=== PATIENT | female | born 1975 | race Caucasian/White ===

== ENCOUNTER → 2020-09-26 | Outpatient (CLI) | payer OTHER ==
--- NOTE | 2020-09-26 14:45 | RADIOLOGY REPORT (SQ) ---
EXAM DESCRIPTION: LUMBAR SPINE COMPLETE IMAGES COMPLETED DATE/TIME: 09/26/2020 2:32 pm REASON FOR STUDY: CHRONIC NECK PAIN;CHRONIC BACK PAIN;BRIAN SHOULDER PAIN M54.9 DORSALGIA, UNSPECIFIE D M25.511 PAIN IN RIGHT SHOULDER M25.512 PAIN IN LEFT SHOULDER COMPARISON: None. NUMBER OF VIEWS: Five views including obliques. TECHNIQUE: AP, lateral, oblique, and sacral radiographic images acquired of the lumbar spine. LIMITATIONS: None. FINDINGS: MINERALIZATION: Normal. SEGMENTATION: Normal. No transitional anatomy. ALIGNMENT: Normal. VERTEBRAE: Maintained height. No fracture or worrisome bone lesion. DISCS: Preserved height. No significant osteophytes or end plate irregularity. POSTERIOR ELEMENTS: Pedicles and facets are intact. No pars defect or posterior arch defects. HARDWARE: None in the spine. PARASPINAL SOFT TISSUES: Normal. PELVIS: Intact as visualized. No fractures or worrisome bone lesions. SI joints intact. OTHER: No other significant finding. IMPRESSION: NORMAL 5 VIEW LUMBAR SPINE. TECHNICAL DOCUMENTATION: JOB ID: [id number] 2010 [employer]- All Rights Reserved Reading location - IP/workstation name: [email or web address]
--- NOTE | 2020-09-26 14:56 | RADIOLOGY REPORT (SQ) ---
EXAM DESCRIPTION: C SP 3 VWS OR LESS IMAGES COMPLETED DATE/TIME: 09/26/2020 2:31 pm REASON FOR STUDY: CHRONIC NECK PAIN;CHRONIC BACK PAIN;BRIAN SHOULDER PAIN M54.9 DORSALGIA, UNSPECIFIE D M25.511 PAIN IN RIGHT SHOULDER M25.512 PAIN IN LEFT SHOULDER COMPARISON: None. NUMBER OF VIEWS: Three views. TECHNIQUE: AP, lateral and odontoid radiographic images acquired of the cervical spine. LIMITATIONS: None. FINDINGS: MINERALIZATION: Normal. ALIGNMENT: Reversal of the normal cervical doses. VERTEBRAE: Vertebral bodies of normal height. DISCS: No significant disc space narrowing. No large osteophytes. HARDWARE: None in the spine. SOFT TISSUES: No masses or calcifications. Lung apices clear. OTHER: No other significant finding. IMPRESSION: Reversal of the normal cervical doses. No other significant findings. TECHNICAL DOCUMENTATION: JOB ID: [id number] 2010 [employer]- All Rights Reserved Reading location - IP/workstation name: [email or web address]
--- NOTE | 2020-09-26 14:57 | RADIOLOGY REPORT (SQ) ---
EXAM DESCRIPTION: SHOULDER BILAT 2 OR MORE VIEWS IMAGES COMPLETED DATE/TIME: 09/26/2020 2:32 pm REASON FOR STUDY: CHRONIC NECK PAIN;CHRONIC BACK PAIN;BRIAN SHOULDER PAIN M54.9 DORSALGIA, UNSPECIFIE D M25.511 PAIN IN RIGHT SHOULDER M25.512 PAIN IN LEFT SHOULDER COMPARISON: None. NUMBER OF VIEWS: Three views. TECHNIQUE: Internal dictation, external rotation and Y-views of the right shoulder were submitted al michael with internal and external views of left shoulder. LIMITATIONS: None. FINDINGS: MINERALIZATION: Normal. BONES: No acute fracture. No worrisome bone lesions. No significant osteophytes. GLENOHUMERAL JOINT: No significant findings. ACROMIOCLAVICULAR JOINT: No large osteophytes. SOFT TISSUES: No calcifications. VISUALIZED RIBS, SPINE, AND LUNG: No other significant finding. OTHER: No other significant finding. IMPRESSION: NEGATIVE STUDY OF THE RIGHT AND LEFT SHOULDERS. NO EXPLANATION FOR PAIN. TECHNICAL DOCUMENTATION: JOB ID: [id number] 2010 [employer]- All Rights Reserved Reading location - IP/workstation name: [email or web address]
== END ==
LOC: OD 14:09
PROVIDERS: ATTEND Nurse Practitioner Family
DX: M54.2 Cervicalgia (principal); M25.511 Pain in right shoulder; M25.512 Pain in left shoulder
CPT/HCPCS: 72040; 72110

== ENCOUNTER → 2020-10-05 | Outpatient (CLI) | payer OTHER ==
--- NOTE | 2020-10-05 08:44 | WOMENS IMAGING REPORT ---
EXAM DESCRIPTION: RETROPERITONEAL U/S IMAGES COMPLETED DATE/TIME: 10/05/2020 8:34 am REASON FOR STUDY: Z85.528 PERSONAL HISTORY OF OTHER MALIGNANT NEOPLASM OF KIDNEY Z85.528 PERSONAL H ISTORY OF OTHER MALIGNANT NEOPLASM OF KIDN COMPARISON: None. TECHNIQUE: Dynamic and static grayscale images acquired of the kidneys and bladder and recorded on P ACS. Additional selected color Doppler and spectral images recorded. LIMITATIONS: None. FINDINGS: RIGHT KIDNEY: Normal size. Normal echogenicity. Complex cystic mass measuring 3.5 x 2 .1 x 3.4 cm. Recommend correlation with old films or CT with and without contrast for further charac terization. No hydronephrosis. No calcifications. LEFT KIDNEY: Normal size. Normal echogenicity. No solid or suspicious masses. No hydronephrosi s. No calcifications. BLADDER: No masses. OTHER FINDINGS: No other significant finding. IMPRESSION: Complex 3.5 x 2.1 x 3.4 cm mass off the upper pole the right kidney. Recommend correlat ion with old films. If unavailable CT of the abdomen without and with contrast is recommended for fu rther characterization. TECHNICAL DOCUMENTATION: JOB ID: [id number] 2010 [employer]- All Rights Reserved Reading location - IP/workstation name: [email or web address]
== END ==
LOC: WI 07:58
PROVIDERS: ATTEND Nurse Practitioner Family
DX: Z08 Encounter for follow-up examination after completed treatment for malignant neoplasm (principal); Z85.528 Personal history of other malignant neoplasm of kidney; N28.89 Other specified disorders of kidney and ureter
CPT/HCPCS: 76770

== ENCOUNTER → 2020-10-24 | Outpatient (CLI) | payer OTHER ==
--- NOTE | 2020-10-24 13:30 | RADIOLOGY REPORT (SQ) ---
EXAM DESCRIPTION: CT ABD/PELVIS COMBO IMAGES COMPLETED DATE/TIME: 10/24/2020 9:22 am REASON FOR STUDY: (R93.429)ABNORMAL RADIOLOGIC FINDINGS ON DX IMAGING OF UNSP KIDNEY R93.429 ABNORM AL RADIOLOGIC FINDINGS ON DX IMAGING OF UNSP K N28.89 OTHER SPECIFIED DISORDERS OF KIDNEY AND URETER COMPARISON: 10/05/2020 ultrasound TECHNIQUE: CT scan of the abdomen and pelvis performed with and without intravenous contrast, and wi thout oral contrast. Contrasted imaging performed helical scanning technique and dynamic intravenous contrast injection. Images reviewed with lung, soft tissue, and bone windows. Reconstructed coronal a nd sagittal MPR images reviewed. Delayed images for evaluation of the urinary system also acquired. A ll images stored on PACS. All CT scanners at this facility use dose modulation, iterative reconstruction, and/or weight based d osing when appropriate to reduce radiation dose to as low as reasonably achievable (ALARA). [facility]: Dose Right [facility]: CareDose [facility]: Dose Right [facility]: Teradose 4D [facility]: OSIX CONTRAST TYPE AND DOSE: contrast/concentration: Isovue 350.00 mmol/ml; Total Contrast Delivered: 100 .0 ml; Total Saline Delivered: 40.0 ml RENAL FUNCTION: Creatinine 0.8 RADIATION DOSE: CT Rad equipment meets quality standard of care and radiation dose reduction techniq ues were employed. CTDIvol: 24.2 - 28.0 mGy. DLP: 4306 mGy-cm. . LIMITATIONS: None. FINDINGS: NON-CONTRASTED IMAGING: See below POST-CONTRASTED IMAGING: LOWER CHEST: No significant findings. No nodules or infiltrates. LIVER: Normal size. No masses. No dilated ducts. SPLEEN: Normal size. No focal lesions. PANCREAS: No masses. No significant calcifications. No adjacent inflammation or peripancreatic fluid collections. Pancreatic duct not dilated. GALLBLADDER: Surgically absent. ADRENAL GLANDS: No significant masses or asymmetry. RIGHT KIDNEY AND URETER: There is a complex cystic lesion with originating off the posterior interpol ar region and partially exophytic measuring 3.3 x 2.8 cm (series 3, image 33). This lesion demonstra anselmo thick wall with areas of questionable low-level septal enhancement (series 3, image 33). No evid ence of renal venous involvement. No lymphadenopathy. No significant calcifications. No hydronep hrosis or hydroureter. LEFT KIDNEY AND URETER: No solid masses. No significant calcifications. No hydronephrosis or hydr oureter. AORTA AND VESSELS: No aneurysm. No dissection. Renal arteries, SMA, celiac without stenosis. RETROPERITONEUM: No retroperitoneal adenopathy, hemorrhage or masses. BOWEL AND PERITONEAL CAVITY: No evidence of intestinal obstruction. No focal bowel wall thickening. Scattered colonic diverticula. APPENDIX: Normal. PELVIS: Decompressed urinary bladder. No pelvic free fluid, adenopathy or mass. ABDOMINAL WALL: No masses. No hernias. BONES: No acute bony abnormality. No suspicious lytic or blastic osseous lesions. Sclerosis at the bilateral sacroiliac joints. Punctate calcific density within the right proximal femur and right key um, possibly bone island. OTHER: No other significant finding. IMPRESSION: 1. Complex cystic lesion off the posterior right interpolar kidney measuring approximat fanny 3.3 x 2.8 cm with likely mild septal enhancement suggestive of renal neoplasm (Bosniak 2 F). No evidence of vascular involvement or lymphadenopathy. If available remote priors would be beneficial for comparison. Recommend urology consultation and follow-up. 2. Bilateral symmetric sacroiliac joint sclerosis which can be seen with inflammatory arthropathies such as ankylosing spondylitis, rheumatoid arthritis or enteropathic arthritis such as Crohn disease or ulcerative colitis. Recommend correlation with patient history. TECHNICAL DOCUMENTATION: JOB ID: [id number] Quality ID # [id number]: Final reports with documentation of one or more dose reduction techniques (e.g., Au tomated exposure control, adjustment of the mA and/or kV according to patient size, use of iterative reconstruction technique) 2010 [employer]- All Rights Reserved Reading location - IP/workstation name: [email or web address]
== END ==
LOC: RAD 07:55
PROVIDERS: ATTEND Nurse Practitioner Family
DX: N28.89 Other specified disorders of kidney and ureter (principal)
CPT/HCPCS: 74178

== ENCOUNTER → 2020-11-20 | Outpatient (CLI) | payer OTHER ==
--- NOTE | 2020-11-20 08:28 | WOMENS IMAGING REPORT ---
EXAM DESCRIPTION: BILAT SCREENING MAMMO W/CAD IMAGES COMPLETED DATE/TIME: 11/20/2020 8:00 am REASON FOR STUDY: ROUTINE BILATERAL SCREENING;Z12.31 Z12.31 ENCNTR SCREEN MAMMOGRAM FOR MALIGNANT N EOPLASM OF DOMENICA COMPARISON: None. EXAM PARAMETERS: Standard craniocaudal and mediolateral oblique views of each breast recorded using digital acquisition. Read with the assistance of CAD. .ON24 - [employer] Version 9.2 LIMITATIONS: None. FINDINGS: No suspicious masses, suspicious calcifications or architectural distortion. No areas of c oncern. IMPRESSION: NEGATIVE MAMMOGRAM. BIRADS 1 BREAST DENSITY: b. There are scattered areas of fibroglandular density. BIRAD: ASSESSMENT: 1 NEGATIVE RECOMMENDATION: ROUTINE SCREENING COMMENT: The patient has been notified of the results by letter per MQSA requirements. Additional no tification policies are in place for contacting patient with suspicious or incomplete findings. Quality ID #225: The [employer] recommends an annual screening mammogram for women aged 40 years or over. This facility utilizes a reminder system to ensure that all patients receive reminder letters, and/or direct phone calls for appointments. This includes reminders for routine scr eening mammograms, diagnostic mammograms, or other Breast Imaging Interventions when appropriate. Th is patient will be placed in the appropriate reminder system. TECHNICAL DOCUMENTATION: FINDING NUMBER: (1) ASSESSMENT: (1) JOB ID: [id number] 2010 [employer]- All Rights Reserved Reading location - IP/workstation name: [email or web address]
== END ==
LOC: WI 07:44
PROVIDERS: ATTEND Nurse Practitioner Family
DX: Z12.31 Encounter for screening mammogram for malignant neoplasm of breast (principal)
CPT/HCPCS: 77067